=== PATIENT | male | born 1960 | race Caucasian/White ===

== ENCOUNTER 2023-07-18 20:08 | Emergency (ER) | payer OTHER, SELFPAY ==
[2023-07-18 20:18] VITALS: BP 156/95; PULSE 76; RESP 16; TEMP 36.4; O2SAT 97
--- NOTE | 2023-07-18 20:19 | ED.GENADUL_ITS ---
Discharge Plan Disposition Patient Disposition: Home Condition: Good Discharge Details Clinical Impression: Encounter for medical screening examination Primary Care Provider: Ora,Local ED Provider: Ian Do Discharge Instructions Additional Instructions: You were brought to the emergency department for an evaluation at the request of [facility]. You have declined evaluation and have capacity to do so. You may return to the department at any point if you change your mind or feel you do need medical attention. HPI General Mode of arrival: EMS . Date/Time Provider Initiated Documentation: 07/18/23 20:19 . Limitations to Documentation: no limitations . Information obtained by: patient . HPI Narrative: Patient presents to ED after being released from protective custody by [facility] with concern for alcohol withdrawal. On arrival patient politely declines evaluation and does not feel that he needs medical attention. He does relate to being in an argument with his this morning. Police were called and he was taken into protective custody after blowing 0.19 on a breathalyzer. He subsequently ended up at the [facility] in [place] pending sobriety. Police called EMS because he was a little diaphoretic and may be a little tremulous. Patient without complaint of and would like to be released without evaluation. Review of Systems Narrative: See HPI Exam Narrative Exam Narrative: Const: WDWN male in NAD. VS per triage. HEENT: NC/AT. Normal facial exam. Eyes: Normal conjunctiva and sclera. Neck: Supple. Lungs: Normal respiratory effort. Neuro: A+O x 3. Normal speech, mentation, gait. Cranial nerves II - XII grossly intact. No gross motor or sensory deficit. Psych: Normal affect and mood. Normal thought content. Denies SI or HI. Medical Decision Making Patient brought here to ED after being released from protective custody by [facility]. Patient requesting no medical evaluation and would like to be released. He is alert and oriented with normal mentation and clearly has capacity. He denies any SI or HI. He did allow me to review documentation that he had with him regarding the incident this morning. His now has a temporary restraining order pending hearing with a food service utility worker on Thursday. He acknowledges this and understands that. Because he has capacity and at no point was there was never any concern expressed for SI or HI, patient will be discharged per his wishes. PFSH All Active Problems (Updated 05/04/24 @ 20:25 by Ian Do MD) Encounter for medical screening examination (Acute) Social History Smoking risk assessment performed?: No
== END 2023-07-18 20:48 | disposition home or self-care (01) ==
LOC: ER 21:00
PROVIDERS: Emergency Provider Emergency Medicine
DX: R61 Generalized hyperhidrosis (principal); R25.1 Tremor, unspecified; Z13.9 Encounter for screening, unspecified
CPT/HCPCS: 99281; 99282